=== PATIENT | male | born 1980 | race Caucasian/White ===

== ENCOUNTER 2016-10-12 08:54 | Emergency (ER) | payer BC ==
[2016-10-12 09:11] VITALS: BP 145/85
--- NOTE | 2016-10-12 11:01 | UC ---
General HPI - HPI Summary HPI Summary: 1) THREE DAYS OF FEVER, SORE THROAT, COUGH, MUSCLE ACHES. 2) HAS RAPID CYCLING BIPOLAR DISORDER. HER INSOMNIA AND MOOD SWINGS HAVE BEEN WORSE LATELY. DID NOT KNOW THAT SHE WAS BIPOLAR WHEN THEY MET, HE HAS BEEN DEPRESSED, STRESSED OUT, AND NOT GETTING ENOUGH SLEEP, DUE TO 'S CHALLENGES. NO SUICIDAL THOUGHTS, NO HI. BUT WOULD LIKE TO HAVE RESOPURCES TO GET COUNSELING. - History of Current Complaint Chief Complaint: UCRespiratory Stated Complaint: SORE THROAT, FEVER, CHILLS Hx Obtained From: Patient, Family/Supervisor [employer] Onset/Duration: Gradual Onset, Lasting Days, Still Present Onset Severity: Moderate Current Severity: Moderate Associated Signs & Symptoms: Positive: Cough, Fever. Negative: Chest Pain, Diarrhea, Dysuria, Diaphoresis, Edema, Headache, Immunocompromised, Nausea, Palpitations, Syncope, SOB, Trauma, Vomiting, Wheezing, Weakness - Allergy/Home Medications Allergies/Adverse Reactions: Allergies Allergy/AdvReac Type Severity Reaction Status Date / Time No Known Allergies Allergy Verified 10/12/16 09:01 Home Medications: Home Medications Naproxen TAB* [Naprosyn TAB*] 2 tab PO BID PRN 10/12/16 [History Confirmed 10/12] PMH/Surg Hx/FS Hx/Imm Hx Previously Healthy: Yes Endocrine History Of: Denies: Diabetes, Thyroid Disease Cardiovascular History Of: Denies: Cardiac Disorders, Hypertension Respiratory History Of: Denies: COPD, Asthma GI/ History Of: Denies: Ulcer - Surgical History Surgical History: Yes Surgery Procedure, Year, and Place: 2006 RT [facility] - Family History Known Family History: Negative: Respiratory Disease - Social History Occupation: Employed Full-time Lives: With Family Alcohol Use: Occasionally Substance Use Type: None, Marijuana Smoking Status (MU): Never Smoked Tobacco Review of Systems Constitutional: Fever, Chills Skin: Negative Eyes: Negative ENT: Sore Throat Respiratory: Cough Cardiovascular: Negative Gastrointestinal: Negative Genitourinary: Negative Motor: Negative Neurovascular: Negative Musculoskeletal: Negative Neurological: Negative Psychological: Negative All Other Systems Reviewed And Are Negative: Yes Physical Exam Triage Information Reviewed: Yes Appearance: Well-Appearing, No Pain Distress, Well-Nourished Vital Signs: Initial Vital Signs Temp 98.8 F 10/12/16 09:03 Pulse 87 10/12/16 09:03 Resp 16 10/12/16 09:03 BP 145/85 10/12/16 09:03 Pulse Ox 98 10/12/16 09:03 Vital Signs Reviewed: Yes Eye Exam: Normal ENT: Positive: Hearing grossly normal, Pharynx normal, TMs normal Dental Exam: Normal Neck exam: Normal Neck: Positive: Supple, Nontender Respiratory Exam: Normal Respiratory: Positive: Chest non-tender, Lungs clear, Normal breath sounds, No respiratory distress, No accessory muscle use Cardiovascular Exam: Normal Cardiovascular: Positive: RRR, No Murmur, Pulses Normal Abdominal Exam: Normal Abdomen Description: Positive: Nontender Musculoskeletal Exam: Normal Neurological Exam: Normal Psychological Exam: Normal Psychological: Positive: Normal Response To Family Skin Exam: Normal Course/Dx - Differential Dx - Multi-Symptom Differential Diagnoses: Other - INFLUENZA, DEPRESSION Provider Diagnoses: UPPER RESPIRATORY INFECTION/VIRAL SYNDROME. DEPRESSION Discharge - Discharge Plan Condition: Stable Disposition: HOME Patient Education Materials: Depression (ED), Viral Syndrome (ED) Forms: *Work Release Referrals: [facility] [Outside] [facility] [Outside] Non Staff,Doctor [Primary Care Provider] -
== END 2016-10-12 11:02 | disposition home or self-care (01) ==
LOC: UCEAST 08:54
DX: J06.9 Acute upper respiratory infection, unspecified (principal); B34.9 Viral infection, unspecified; F32.9 Major depressive disorder, single episode, unspecified
CPT/HCPCS: 87502; 99211; G0463